=== PATIENT | female | born 1945 | race Caucasian/White ===

== ENCOUNTER → 2020-12-20 07:25 | Outpatient (CLI) | payer OTHER, SELFPAY ==
--- NOTE | ~2020-12-20 | MM_ITS ---
EXAMINATION: MM screening [facility] BI w vannesa HISTORY: Screening TECHNIQUE: Craniocaudal and mediolateral oblique 3-D tomosynthesis images were obtained and synthetic 2-D images were generated. CAD analysis was submitted and interpreted. COMPARISON: Comparison to multiple prior studies sequentially, with oldest reviewed study dated 04/22. BREAST PARENCHYMAL COMPOSITION: There are scattered areas of fibroglandular density. FINDINGS: There is no evidence of suspicious mass, calcification, or architectural distortion to sugg est malignancy in either breast. There has been no suspicious interval change. IMPRESSION: 1. No mammographic evidence of malignancy. 2. Recommend routine screening mammography in one year. BI-RADS Category 1: Negative Reviewed, dictated and finalized at location A.
== END ==
PROVIDERS: PCP Family Medicine; Visit Provider Physician Assistant
DX: Z12.31 Encounter for screening mammogram for malignant neoplasm of breast (principal)
CPT/HCPCS: 77063; 77067

== ENCOUNTER → 2021-02-01 13:23 | Outpatient (CLI) | payer OTHER, SELFPAY ==
--- NOTE | ~2021-02-01 | DEXA_ITS ---
Bone Density Report Name: Laureen Acuna Age: 75 Sex: Female Ethnicity: White Date of : 1945 Indication: osteopenia; monitoring treatment; height loss; hysterectomy; postmenopausal Referring Provider: Angelina Velarde Study: Bone densitometry was performed. Exam Date: February 01, 2021 Accession number: [id number] Bone Density: Region BMD T-score Z-score Classification AP Spine (L1-L4) 0.885 -1.5 1.0 Osteopenia Femoral Neck (Left) 0.719 -1.2 1.0 Osteopenia Total Hip (Left) 0.725 -1.8 0.1 Osteopenia Femoral Neck (Right) 0.695 -1.4 0.7 Osteopenia Total Hip (Right) 0.734 -1.7 0.1 Osteopenia Total Hip Mean 0.730 -1.8 0.1 Osteopenia World Health Organization criteria for BMD impression classify patients as: Normal (T-score at or above -1.0), Osteopenia (T-score between -1.0 and -2.5), or Osteoporosis (T-score at or below -2.5). 10-year Fracture Risk: FRAX not reported because: Treated for osteoporosis Previous Exams: Region Exam Age BMD T-score BMD Change BMD Change Date g/cm2 vs Baseline vs Previous AP Spine(L1-L4) 02/01/2021 75 0.885 -1.5 -0.001 -0.023* 07/08/2018 72 0.908 -1.3 0.022 0.003 04/01/2015 69 0.905 -1.3 0.019 0.019 06/08/2011 65 0.886 -1.5 Total Hip(Left) 02/01/2021 75 0.725 -1.8 -0.042* -0.041* 07/08/2018 72 0.767 -1.4 -0.001 -0.022 04/01/2015 69 0.789 -1.3 0.021 0.021 06/08/2011 65 0.768 -1.4 Total Hip(Right) 02/01/2021 75 0.734 -1.7 -0.049* -0.011 07/08/2018 72 0.745 -1.6 -0.038* -0.039* 04/01/2015 69 0.784 -1.3 0.001 0.001 06/08/2011 65 0.783 -1.3 *Denotes significance at 95% confidence level, LSC for AP Spine = 0.022 g/cm2, LSC for Total Hip = 0.027 g/cm2 Clinical Information Provided by Patient: Is being treated for osteoporosis Has used the following medications: Fosamax (i.e. alendronate), Vitamin D, Calcium Has the following medical conditions: Hysterectomy Patient maximum height was 65 Menopause Age: 55 No regular weight bearing exercise Drinks caffeinated beverages Onset of menses at age 11 Number of children 3 Impression: The patient has low bone mass, based on the Left Total Hip T-score. The BMD for the AP Spine(L1-L4) decreased, changing by -0.023 since the last DXA exam. The BMD for the Total Hip
== END ==
PROVIDERS: PCP Family Medicine; Visit Provider Physician Assistant
DX: Z78.0 Asymptomatic menopausal state (principal); M85.89 Other specified disorders of bone density and structure, multiple sites
CPT/HCPCS: 77080

== ENCOUNTER 2021-05-11 01:18 | Day surgery (SDC) | payer OTHER, SELFPAY ==
[2021-05-08 14:04] VITALS: BMI 23.0
[2021-05-11] VITALS (12 sets, daily range): BP systolic 129–179; BP diastolic 56–73; PULSE 63–80; RESP 16–20; TEMP 36.3; O2SAT 94–100
--- NOTE | 2021-05-11 07:31 | WPDHPUPDATE1 ---
History and Physical Update Update Date/Time: 05/11/21 07:31 History and Physical has been reviewed, including an updated exam of the patient. There are NO changes in the patient's condition. Risks, benefits, and alternatives have been discussed and questions answered. Patient agrees to proceed with procedure.
[2021-05-11] MEDS: LIDO 1%/EPINEPHRINE 1:100,000 50 ML VIAL 12 ML INFILTRATE (11:48)
--- NOTE | 2021-05-11 13:40 | P.OP_ITS ---
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 She was taken to the operating room and placed supine on the operating table. A time- out was held and confirmed. The face was prepped and draped in usual fashion. She had selected local anesthetic. No frozen section was planned. The site was carefully examined under bright lights and loupe magnification. A rectangular peripheral marking was made for excision of this mass. This area was infiltrated locally with 1% lidocaine with epinephrine. Time was allowed for hemostatic effect and there was no significant bleeding. The outline was incised with a 15 blade. The skin of this area was resected at the base of the dermis. A single stitch was applied to the superior aspect for orientation to the pathologist. The specimen was sent for permanent section. Appropriate sized ellipse was marked on the left upper neck behind the earlobe. This area was infiltrated with 1% lidocaine with epinephrine. A thin full- thickness skin graft was harvested from that site. The donor area was closed by undermining approximately 5-8 mm on all sides and the wound edges approximated with 4-0 Vicryl suture and the dermis. Final skin closure was done with Dermabond. The graft was carefully examined for the particular needs of this wound. It was defatted in most areas leaving some more thickened graft to apply to the caudal margin of the wound. This was carefully tailored the inset with 5 0 and 6 0 interrupted nylon. No quilting sutures were used and no pie crusting was done since the graft lay fairly taut over the convex nose. She is being discharged home with a prescription for cephalexin 500 mg t.i.d. for 5 days. Nothing was ordered for pain for Estimated Blood Loss 2 Drains No Packing No Pathology yes Complications No immediate complications Condition stable Disposition same day
== END 2021-05-11 13:53 | disposition home or self-care (01) ==
PROVIDERS: PCP Family Medicine; Visit Provider Plastic Surgery
PROC: (CPT 15260; principal; 2021-05-11 11:30)
DX: C43.31 Malignant melanoma of nose (principal)
CPT/HCPCS: 15260; 11646; 88305; 88342; A9270

== ENCOUNTER 2021-06-22 02:27 | Day surgery (SDC) | payer OTHER, SELFPAY ==
[2021-06-08 09:41] VITALS: BMI 22.6
--- NOTE | 2021-06-08 09:56 | PC.NURSE ---
Report to the Outpatient Waiting Room, entrance under the green pavilion located off [facility], at time __1030 on date ____06/22/21___. OR Time: __1130 . - You and your visitor will be asked a series of questions to screen for COVID 19 for your protection. - A mask is required within the hospital. - Only one visitor is allowed at this time. Patient visitors will be guided where to wait when not with patient. Preoperative COVID Testing Requirements: No COVID Test needed if: (proof is required; if not received patient will have Rapid Test prior to entry) - Patient has received COVID Vaccine at least 14 days prior to procedure date or - Patient has positive COVID test result within last 90 days of surgery date. COVID Test needed if above criteria is not met If not COVID vaccinated a COVID test must be conducted within 72 hours of surgery and patient is asked to isolate self from time of testing until procedure. You will go to the [facility] for your COVID testing. The [facility] site is located at the corner of [address] [facility]. You will only be called if COVID results are positive and your surgeon may reschedule your elective surgery date. Patients may have clear liquids (water, carbonated beverages, clear teas, apple juice) until 3 hours prior to surgery with a maximum of 20 ounces. - No food from midnight until time of surgery LIGHT BREAKFAST AM OF SURGERY - Infants may have breast milk until 4 hours before surgery, formula 6 hours prior to surgery. - Children will be allowed to drink immediately following surgery. If applicable, please bring a bottle or sippy cup to assist with drinking. Juice, water, soda, and popsicles are readily available. For infants on formula, please bring formula the day of surgery. Pacifiers are allowed. Take the following medications with a SIP of water the morning of surgery: __USUAL MORNING MEDS Medications to discontinue per physician NONE Date to take last dose Please no make-up, nail yi, hairspray, perfume, deodorant, or body powder the day of surgery. No jewelry (including any body piercings) or valuables the day of surgery, leave them at home. Please take a shower or bath the night before, or the morning of, surgery with an antibacterial soap. Wear comfortable, loose fitting clothing. Children are encouraged to wear pajamas. - Jewelry must be removed prior to entering the operating room. Rings and piercings that are not removed may be cut off. - The hospital will not accept responsibility for valuables. - Please leave all valuables, including medications, at home the day of surgery. If you are going home after surgery, a licensed driver medic must drive you home. PT STATES IS DRIVING HER HOME. - NO public transportation without another adult. - We recommend that an adult stay with you for 24 hours following discharge. - We also recommend that you do not drive, make important decision, drink alcoholic beverages, or take any drugs that were not prescribed by your health care provider for at least 24 hours after your discharge time. For Pediatric surgeries, we recommend two adults accompany the child home (only one inside the building at this time). Follow any additional instructions given to you from your surgeon. Telephone instructions given to PATIENT and asked if any additional questions and then verbalized understanding. Patient advised to call surgeon office or pre surgery nurse liaison [phone] if any additional questions.
[2021-06-22] VITALS (16 sets, daily range): BP systolic 127–144; BP diastolic 52–66; PULSE 67–150; RESP 16; TEMP 36.5; O2SAT 93–100
--- NOTE | 2021-06-22 07:18 | WPDHPUPDATE1 ---
History and Physical Update Update Date/Time: 06/22/21 07:18 History and Physical has been reviewed, including an updated exam of the patient. There are NO changes in the patient's condition. Risks, benefits, and alternatives have been discussed and questions answered. Patient agrees to proceed with procedure.
[2021-06-22] MEDS: LIDO 1%/EPINEPHRINE/PF 1:200,000 30 ML VIAL 5 ML XX (15:28)
--- NOTE | 2021-06-22 16:38 | SUR.OPER ---
Patient being monitored under local anesthesia. Patient VS stable, HR in the upper 60s upon start of procedure. Epinephrine injected to operative site by Dr. Luque. HR elevated to >100 BPM, at times reaching 140s. Call placed to anesthesiologist. Dr. Sandhu to bedside at 1545. Assessed patient and EKG and determined the patient was in NSR with a bundle branch block. Dr. Caldera and Dr. Luque OK to proceed with procedure. VS returned to baseline. At 1610, Dr. Sandhu was called back to the room as the patients heart rate was up to [address] Sandhu and Dr. Luque discussed patients elevated heart rate and determined IV access was needed. IV started by Dr. Sandhu in patients left foot with 22 g catheter. Patient has stated she feels fine throughout entire procedure and denies any chest pain, shortness of breath, or chest pressure. Will continue to monitor.
--- NOTE | 2021-06-22 18:05 | P.OP_ITS ---
Procedure Note - Detailed Date of Procedure 06/22/21 Pre-op Diagnosis melanoma of nasal bridge Post-op Diagnosis same Procedure Performed 4 x 3.25 cm excision of melanoma of the nasal bridge for margins with a full- thickness skin graft reconstruction measuring 13 sq cm Surgeon Guy Luque MD Anesthesia local Description of Procedure The recent skin grafted area was marked on the patient's face in the holding area. She was taken to the operating room and placed supine on the operating table. Case was being performed under local anesthetic. The time-out was held and confirmed. The face and neck were prepped and draped in usual fashion. The site was carefully marked out and these markings compared to dimensions from her prior surgery. This area was then infiltrated with 1% lidocaine with epinephrine achieving satisfactory anesthesia. An appropriate site on her right neck was identified for donor skin harvest. This is placed more inferiorly than the previous graft due to its size and due the fact there was a small actinic the growth on the right neck more superiorly and we want to avoid that being transferred. That site was also anesthetized 1% lidocaine with epinephrine. The approximate 7 mm margin was marked around the existing scar. The incision was made with a 15 blade and the additional margin of skin and the prior graft were all elevated off the muscle layer. The specimen was sent for permanent section. Graft was harvested from the right lower neck as a full-thickness graft. The donor site was undermined around the periphery at least a cm and half in all directions and that wound was closed with intradermal 3-0 Vicryl suture and the skin was closed with glue. The graft was carefully defatted trying to preserve some deeper dermis and a little fat in certain areas to provide contour. This was tailored and inset with 6 0 nylon sutures. Some small pie crusting fenestration was were made to permit drainage. No additional dressing was applied. The patient tolerated the procedure very well and was discharged with instructions in wound care and follow-up in prescription for cephalexin 500 mg t.i.d. for 7 days. No pain medicine was ordered. Estimated Blood Loss 5 Drains No Packing No Complications Other complications (The patient developed some cardiac dysrhythmias. She was asymptomatic. The Anesthesiologist was called to help interpret the rhythms and offered to place an IV just in it might be needed. The patient agreed. No medication ws given. The patient reported that she has had rhythm changes and díaz) Condition stable Disposition same day
== END 2021-06-22 18:12 | disposition home or self-care (01) ==
PROVIDERS: PCP Family Medicine; Visit Provider Plastic Surgery
PROC: (CPT 11646; principal; 2021-06-22 14:30)
DX: C43.31 Malignant melanoma of nose (principal)
CPT/HCPCS: 11646; 15260; 88305; A9270

== ENCOUNTER 2021-11-02 10:18 | Outpatient (CLI) | payer OTHER, SELFPAY ==
[2021-11-02 11:04] LABS: Kit Draw Collected
== END 2021-11-02 10:19 | disposition home or self-care (01) ==
LOC: ANHLAB 10:19
PROVIDERS: PCP Family Medicine; Visit Provider Internal Medicine Hematology & Oncology
DX: Z76.89 Persons encountering health services in other specified circumstances (principal)
CPT/HCPCS: 36415

== ENCOUNTER 2022-07-09 08:39 | Outpatient (CLI) | payer OTHER, SELFPAY ==
--- NOTE | 2022-07-09 08:48 | ECHO_ITS ---
Patient Info Name: Laureen Acuna Age: 76 years : 1945 Gender: Female Ht: 64 in Wt: 130 lbs BSA: 1.64 m2 HR: 79 bpm BP: 154 / 80 mmHg Technical Quality: Good Exam Date: 07/09/2022 8:56 AM Exam Location: [facility] Patient Status: Outpatient Admit Date: 07/09/2022 Staff Ordering Physician: Irene Zaidi NP Wire Photo Operator: Nancy Briseno RDCS Attending Provider: Irene Zaidi NP Referring Physician: Wade LOCKWOOD Exam Type: CA echo doppler color flow Study Info Indications R01.1 - Cardiac murmur, unspecified Complete two-dimensional, color flow and Doppler transthoracic echocardiogram is performed. Summary 1. Complete two-dimensional, color flow and Doppler transthoracic echocardiogram is performed. 2. The left ventricular diastolic function is grade II diastolic dysfunction. 3. Left ventricular chamber dimension is mildly enlarged. 4. Left ventricular systolic function is normal, estimated at 60-65%. 5. E/e' 18 is elevated. 6. Global longitudinal strain is abnormal at -16.0%. 7. Left atrial chamber dimension is moderately enlarged. 8. There is trace aortic valve regurgitation. 9. There is mild to moderate mitral valve regurgitation. 10. There is mild tricuspid valve regurgitation. 11. Mild pulmonary hypertension, estimated pulmonary arterial systolic pressure is 48 mmHg. 12. There is trivial pericardial effusion. Left Ventricle E/e' 18 is elevated. Global longitudinal strain is abnormal at -16.0%. The left ventricular diastolic function is grade II diastolic dysfunction. Left ventricular chamber dimension is mildly enlarged. Left ventricular systolic function is normal, estimated at 60-65%. Right Ventricle Right ventricular systolic function is normal and with normal TAPSE 1.9 cm. Right ventricular chamber dimension is normal. Left Atria Left atrial chamber dimension is moderately enlarged. Right Atria Right atrial chamber dimension is normal. Aortic Valve The aortic valve is trileaflet. There is no aortic valve stenosis. There is trace aortic valve regurgitation. Pulmonic Valve There is no pulmonic regurgitation. Mitral Valve There is no mitral valve stenosis. There is mild to moderate mitral valve regurgitation. Tricuspid Valve There is mild tricuspid valve regurgitation. Mild pulmonary hypertension, estimated pulmonary arterial systolic pressure is 48 mmHg. Pericardium/Pleural There is trivial pericardial effusion. Inferior Vena Cava Normal inferior vena cava with >50% collapse upon inspiration consistent with normal right atrial pressure, 5 mmHg. Aorta The aortic root size at the sinus of Valsalva is normal. Left Ventricular Outflow Tract Name Value Normal LVOT 2D LVOT Diameter 1.9 cm LVOT Doppler LVOT Peak Gradient 2 mmHg LVOT Mean Gradient 2 mmHg LVOT VTI 18 cm LVOT VTI/AV VTI Ratio 0.8 LVOT Stroke Volume 54 ml LVOT CO 3.6 l/min
== END 2022-07-09 08:40 | disposition home or self-care (01) ==
LOC: ANHCARD 08:41
PROVIDERS: PCP Family Medicine; Visit Provider Nurse Practitioner Gerontology
DX: R01.1 Cardiac murmur, unspecified (principal); I08.3 Combined rheumatic disorders of mitral, aortic and tricuspid valves
CPT/HCPCS: 93306

== ENCOUNTER → 2023-05-08 13:11 | Outpatient (CLI) | payer OTHER, SELFPAY ==
--- NOTE | ~2023-05-08 | DEXA_ITS ---
Bone Density Report Name: JEREMY HENRY Age: 77 Sex: Female Ethnicity: White Date of : 1945 Indication: osteopenia; monitoring treatment; height loss; hysterectomy; postmenopausal Referring Provider: DUNG, MARIBEL Joaquin Study: Bone densitometry was performed. Exam Date: May 08, 2023 Accession number: [id number] Bone Density: Region BMD T-score Z-score Classification AP Spine (L1-L4) 0.892 -1.4 1.2 Osteopenia Femoral Neck (Left) 0.698 -1.4 0.9 Osteopenia Total Hip (Left) 0.713 -1.9 0.1 Osteopenia Femoral Neck (Right) 0.638 -1.9 0.3 Osteopenia Total Hip (Right) 0.719 -1.8 0.1 Osteopenia Total Hip Mean 0.716 -1.9 0.1 Osteopenia World Health Organization criteria for BMD impression classify patients as: Normal (T-score at or above -1.0), Osteopenia (T-score between -1.0 and -2.5), or Osteoporosis (T-score at or below -2.5). 10-year Fracture Risk: FRAX not reported because: Treated for osteoporosis Previous Exams: Region Exam Age BMD T-score BMD Change BMD Change Date g/cm2 vs Baseline vs Previous AP Spine(L1-L4) 05/08/2023 77 0.892 -1.4 0.007 0.008 02/01/2021 75 0.885 -1.5 -0.001 -0.023* 07/08/2018 72 0.908 -1.3 0.022 0.003 04/01/2015 69 0.905 -1.3 0.019 0.019 06/08/2011 65 0.886 -1.5 Total Hip(Left) 05/08/2023 77 0.713 -1.9 -0.055* -0.012 02/01/2021 75 0.725 -1.8 -0.042* -0.041* 07/08/2018 72 0.767 -1.4 -0.001 -0.022 04/01/2015 69 0.789 -1.3 0.021 0.021 06/08/2011 65 0.768 -1.4 Total Hip(Right) 05/08/2023 77 0.719 -1.8 -0.064* -0.015 02/01/2021 75 0.734 -1.7 -0.049* -0.011 07/08/2018 72 0.745 -1.6 -0.038* -0.039* 04/01/2015 69 0.784 -1.3 0.001 0.001 06/08/2011 65 0.783 -1.3 *Denotes significance at 95% confidence level, LSC for AP Spine = 0.022 g/cm2, LSC for Total Hip = 0.027 g/cm2 Clinical Information Provided by Patient: Is being treated for osteoporosis Has used the following medications: Evista (i.e. raloxifene), Vitamin D, Calcium, MTV Has the following medical conditions: Hysterectomy Patient maximum height was 65 Menopause Age: 55 Does not regularly consume dairy products Drinks caffeinated beverages Onset of menses at age 11 Number of children 3
--- NOTE | ~2023-05-08 | MM_ITS ---
EXAMINATION: MM screening [facility] BI w vannesa HISTORY: Screening TECHNIQUE: Craniocaudal and mediolateral oblique 3-D tomosynthesis images were obtained and synthetic 2-D images were generated. CAD analysis was submitted and interpreted. COMPARISON: Comparison to multiple prior studies sequentially, with oldest reviewed study dated 04/22. BREAST PARENCHYMAL COMPOSITION: There are scattered areas of fibroglandular density. FINDINGS: There is no evidence of suspicious mass, calcification, or architectural distortion to sugg est malignancy in either breast. There has been no suspicious interval change. IMPRESSION: 1. No mammographic evidence of malignancy. 2. Recommend routine screening mammography in one year. BI-RADS Category 1: Negative Reviewed, dictated and finalized at location A.
== END ==
PROVIDERS: PCP Family Medicine; Visit Provider Nurse Practitioner Gerontology
DX: Z12.31 Encounter for screening mammogram for malignant neoplasm of breast (principal); Z78.0 Asymptomatic menopausal state; M85.89 Other specified disorders of bone density and structure, multiple sites
CPT/HCPCS: 77063; 77067; 77080

== ENCOUNTER 2025-05-25 12:20 | Outpatient (CLI) | payer OTHER, SELFPAY ==
--- NOTE | ~2025-05-25 | DEXA_ITS ---
Bone Density Report Name: JEREMY HENRY Age: 79 Sex: Female Ethnicity: White Date of : 1945 Indication: osteopenia; monitoring treatment; height loss; hysterectomy; Referring Provider: NIKKI BURCIAGA Study: Bone densitometry was performed. Exam Date: May 25, 2025 Accession number: [id number] Bone Density: Region BMD T-score Z-score Classification AP Spine(L1-L4) 0.862 -1.7 1.0 Osteopenia Femoral Neck (Left) 0.708 -1.3 1.1 Osteopenia Total Hip (Left) 0.695 -2.0 0.1 Osteopenia Femoral Neck (Right) 0.641 -1.9 0.4 Osteopenia Total Hip (Right) 0.696 -2.0 0.1 Osteopenia Total Hip Mean 0.695 -2.0 0.1 Osteopenia World Health Organization criteria for BMD impression classify patients as: Normal (T-score at or above -1.0), Osteopenia (T-score between -1.0 and -2.5), or Osteoporosis (T-score at or below -2.5). 10-year Fracture Risk: FRAX not reported because: Treated for osteoporosis Previous Exams: -- Region Exam Age BMD T-score BMD Change BMD Change Date g/cm2 vs Baseline vs Previous -- AP Spine (L1-L4) 05/25/2025 79 0.862 -1.7 -2.7%* -3.4%* 05/08/2023 77 0.892 -1.4 0.7% 0.9% 02/01/2021 75 0.885 -1.5 -0.1% -2.5%* 07/08/2018 72 0.908 -1.3 2.5% 0.4% 04/01/2015 69 0.905 -1.3 2.1% 2.1% 06/08/2011 65 0.886 -1.5 Total Hip(Left) 05/25/2025 79 0.695 -2.0 -9.5%* -2.6% 05/08/2023 77 0.713 -1.9 -7.1%* -1.7% 02/01/2021 75 0.725 -1.8 -5.5%* -5.4%* 07/08/2018 72 0.767 -1.4 -0.1% -2.8% 04/01/2015 69 0.789 -1.3 2.7% 2.7% 06/08/2011 65 0.768 -1.4 Total Hip(Right) 05/25/2025 79 0.696 -2.0 -11.1%* -3.2% 05/08/2023 77 0.719 -1.8 -8.1%* -2.0% 02/01/2021 75 0.734 -1.7 -6.3%* -1.4% 07/08/2018 72 0.745 -1.6 -4.9%* -5.0%* 04/01/2015 69 0.784 -1.3 0.1% 0.1% 06/08/2011 65 0.783 -1.3 -- *Denotes significance at 95% confidence level, LSC for AP Spine = 0.022 g/cm2, LSC for Total Hip = 0.027 g/cm2 Clinical Information Provided by Patient: Is being treated for osteoporosis Has used the following medications: Evista (i.e. raloxifene), Vitamin D, Calcium Has the following medical conditions: Hysterectomy Patient maximum height was 65.5 Menopause Age: 55 Drinks caffeinated beverages Onset of menses at age 11 Number of children 3 Impression: The patient has low bone mass, based on the Left Total Hip T-score. The BMD for the AP Spine (L1-L4) decreased, changing by -3.4% since the last DXA exam. Discussion: SIGNIFICANT BONE LOSS OBSERVED. Adherence to therapy (including calcium and vitamin D intake) should be assessed. If compliance is not a factor, review management and exclusion of secondary causes of bone loss. It is important to ask patients whether they are taking their medications and to encourage continued and appropriate compliance with their osteoporosis therapies to reduce fracture risk. It is also important to review their risk factors and encourage appropriate calcium and vitamin D intakes, exercise, fall prevention and other lifestyle measures. Follow-Up: Consider a repeat BMD and Vertebral Fracture Assessment (VFA) exam in 2 years or sooner if medically necessary, to reassess this patient's status. Reported by: ANDRES on 05/25/2025 12:48:00 PM. Reviewed, dictated and finalized at location A.
== END 2025-05-25 12:21 | disposition home or self-care (01) ==
LOC: MICIMG 12:21
PROVIDERS: PCP Family Medicine; Visit Provider Physician Assistant
DX: M85.89 Other specified disorders of bone density and structure, multiple sites (principal); I10 Essential (primary) hypertension; E78.2 Mixed hyperlipidemia; E55.9 Vitamin D deficiency, unspecified; Z78.0 Asymptomatic menopausal state
CPT/HCPCS: 77080